=== PATIENT | male | born 1960 | race Caucasian/White ===

== ENCOUNTER 2017-06-24 06:00 | Inpatient (IN) | payer BC, OTHER, SELFPAY ==
[2017-06-24 06:26] LABS: #Basophils 0.1 thou/uL (0.0-0.2); #Eosinphils 0.1 thou/uL (0.0-0.7); #Lymphocytes 3.4 thou/uL (1.20-3.40); #Monocytes 0.7 thou/uL (0.11-0.59); #Neutrophils 4.8 thou/uL (1.40-6.50); %Basophils 0.6 % (0.0-1.0); %Eosinophils 1.6 % (0.0-10.0); %Lymphocytes 37.1 % (21.0-51.0); %Monocytes 7.9 % (0.0-10.0); Hematocrit 45.5 % (42.0-52.0); Mean Platelet Volume 8.4 fL (7.4-10.4); White Blood Cell (WBC) Count 9.1 thou/uL (4.8-10.8)
[2017-06-24 06:32] LABS: Prothrombin Time 13.1 SEC (12.0-14.7)
[2017-06-24] MEDS ORDERED: Fentanyl 100 MCG/2 ML VIAL ONE ×3 (06:46→17:29)
[2017-06-24 07:04] LABS: ALT (SGPT) 59 U/L (8-55); AST (SGOT) 56 U/L (5-34); Alkaline Phosphatase 61 U/L (40-150); Anion Gap 15 mmol/L (10-20); BUN (Urea Nitrogen) 16 mg/dL (8.4-25.7); Bilirubin, Total 1.6 mg/dL (0.2-1.2); Calc. Creatinine Clearance 0 mL/min (70-130); Calcium 8.7 mg/dL (7.8-10.44); Carbon Dioxide 21 mmol/L (22-29); Chloride 104 mmol/L (98-107); Estimated GFR-MDRD 76; Globulin 3.2 g/dL (2.4-3.5)
[2017-06-24] MEDS ORDERED: Ondansetron HCl/PF 4 MG/2 ML Vial ONE ×2 (07:36→15:11)
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
[2017-06-24] MEDS ORDERED: cefTRIAXone\\ROCEPHIN 1 GM in Sodium Chloride 0.9% 100 ML IVPB SCH ×2 (08:30→10:15)
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
[2017-06-24 09:18] LABS: Lactic Acid - Sepsis 1.9 mmol/L (0.5-2.2)
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
[2017-06-24] MEDS ORDERED: Dextrose 5% in Water 1,000 ML IV PRN (10:02)
[2017-06-24] MEDS ORDERED: Ondansetron HCl/PF 4 MG/2 ML Vial IVP PRN ×2 (10:02→17:06)
[2017-06-24] MEDS ORDERED: Promethazine HCl 25 MG/ML VIAL IM PRN ×2 (10:02→17:06)
[2017-06-24] MEDS ORDERED: Dextrose 50% Abboject 50 ML SYRINGE SLOW IVP PRN (10:02)
[2017-06-24] MEDS ORDERED: Ondansetron ODT 4 MG TAB PO PRN (10:02)
[2017-06-24] MEDS ORDERED: Rib Fracture Protocol PO SCH (10:02)
[2017-06-24] MEDS ORDERED: Morphine Sulfate 2 MG/ML SYRINGE IVP PRN (10:02)
[2017-06-24] MEDS ORDERED: Famotidine/PF 20 mg/2ml Vial SLOW IVP SCH ×2 (10:02→10:15)
[2017-06-24] MEDS ORDERED: Cyclobenzaprine 10 MG TAB PO PRN (11:00)
[2017-06-24] MEDS ORDERED: Morphine Sulfate 2 MG/ML SYRINGE ONE (11:55)
[2017-06-24] MEDS ORDERED: Sodium Chloride 0.9% 100 ML ONE (12:21)
[2017-06-24] MEDS ORDERED: cefTRIAXone\\ROCEPHIN 1 GM VIAL ONE (12:21)
[2017-06-24] MEDS ORDERED: Neomycin-Polymyxin 1 ML AMP ONE ×3 (14:31→15:34)
[2017-06-24] MEDS ORDERED: Propofol 200 MG/20 ML VIAL ONE (15:11)
[2017-06-24] MEDS ORDERED: Ketorolac Tromethamine 30 MG/ML VIAL ONE (15:11)
[2017-06-24] MEDS ORDERED: Glycopyrrolate 0.2 MG/ML 5 ML SYRINGE ONE (15:11)
[2017-06-24] MEDS ORDERED: ISOVUE-370 76%-LOCM 1 ML ONE (16:21)
[2017-06-24] MEDS: Sodium Chloride 0.9% 1,000 ML IV SCH ×2 (16:37→18:41)
[2017-06-24] MEDS: traMADol HCl 50 MG TAB PO SCH ×2 (16:52→18:46)
[2017-06-24] MEDS: Acetaminophen 500 MG TAB PO SCH ×2 (16:52→18:45)
[2017-06-24] MEDS: Gabapentin 300 MG CAP PO SCH ×2 (16:52→21:18)
[2017-06-24] MEDS: Ibuprofen 800 MG TAB PO SCH ×2 (16:52→18:45)
[2017-06-24] MEDS ORDERED: Promethazine HCl 25 MG/ML VIAL SLOW IVP PRN (17:06)
[2017-06-24] MEDS ORDERED: Meperidine HCl/PF 25 MG/ML VIAL ONE (17:09)
[2017-06-24 19:49] VITALS: BMI 32.5
[2017-06-24] MEDS: Famotidine/PF 20 mg/2ml Vial SLOW IVP SCH (21:18)
[2017-06-25] MEDS: Ibuprofen 800 MG TAB PO SCH ×5 (00:08→23:23)
[2017-06-25] MEDS: Acetaminophen 500 MG TAB PO SCH ×5 (00:08→23:23)
[2017-06-25] MEDS: traMADol HCl 50 MG TAB PO SCH ×5 (00:08→23:23)
[2017-06-25] MEDS: Sodium Chloride 0.9% 1,000 ML IV SCH ×3 (02:09→20:05)
[2017-06-25 06:23] LABS: #Lymphocytes 1.1 thou/uL (1.20-3.40); #Monocytes 0.9 thou/uL (0.11-0.59); #Neutrophils 4.8 thou/uL (1.40-6.50); %Basophils 0.2 % (0.0-1.0); %Eosinophils 0.7 % (0.0-10.0); %Lymphocytes 15.5 % (21.0-51.0); %Monocytes 13.2 % (0.0-10.0); Hematocrit 37.2 % (42.0-52.0); Red Blood Cell (RBC) Count 3.89 mill/uL (4.70-6.10); White Blood Cell (WBC) Count 6.9 thou/uL (4.8-10.8)
[2017-06-25 06:45] LABS: Anion Gap 11 mmol/L (10-20); BUN (Urea Nitrogen) 18 mg/dL (8.4-25.7); Calc. Creatinine Clearance 112 mL/min (70-130); Calcium 8.1 mg/dL (7.8-10.44); Carbon Dioxide 23 mmol/L (22-29); Chloride 105 mmol/L (98-107); Estimated GFR-MDRD 76
[2017-06-25] MEDS: Gabapentin 300 MG CAP PO SCH ×3 (08:09→20:02)
[2017-06-25] MEDS: Famotidine/PF 20 mg/2ml Vial SLOW IVP SCH ×3 (08:09→20:02)
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
--- NOTE | 2017-06-25 08:53 | RAD ---
INTRAOPERATIVE FLUOROSCOPY: HISTORY: Fracture. COMPARISON: None. FINDINGS: Two fluoroscopic views were provided for Dr. Hernandez. There is a comminuted distal radius fracture. There are associated post traumatic changes in the so ft tissues. External fixation hardware projects over the right hand. IMPRESSION: Fluoroscopy as above. POS: [facility]
[2017-06-25] MEDS ORDERED: cefTRIAXone\\ROCEPHIN 1 GM in Sodium Chloride 0.9% 100 ML IVPB SCH (09:00)
[2017-06-25] MEDS: cefTRIAXone\\ROCEPHIN 2 GM in Sodium Chloride 0.9% 100 ML IVPB SCH (13:05)
[2017-06-26] MEDS: Sodium Chloride 0.9% 1,000 ML IV SCH ×3 (05:29→18:36)
[2017-06-26] MEDS: Acetaminophen 500 MG TAB PO SCH ×3 (05:41→17:23)
[2017-06-26] MEDS: Ibuprofen 800 MG TAB PO SCH ×3 (05:42→17:23)
[2017-06-26] MEDS: traMADol HCl 50 MG TAB PO SCH ×3 (05:42→17:23)
[2017-06-26] MEDS ORDERED: Bupivacaine HCl 0.5%/Epinephrine 1:200,000/PF 30 ml Vial ONE (07:37)
[2017-06-26] MEDS ORDERED: Lidocaine 1% (PF) 30 ML VIAL ONE (07:37)
[2017-06-26] MEDS ORDERED: Thrombin 5000 UNITS/5 ML VIAL ONE (07:38)
[2017-06-26] MEDS ORDERED: Bacitracin Zinc Ointment 30 gm TUBE ONE (07:38)
[2017-06-26] MEDS ORDERED: Propofol 200 MG/20 ML VIAL ONE (08:40)
[2017-06-26] MEDS ORDERED: Succinylcholine Chloride 20 MG/ML 10 ml SYRINGE FS ONE (08:40)
[2017-06-26] MEDS ORDERED: Lidocaine 2% PF 10 ML AMP (For Epidural Use) ONE (08:40)
[2017-06-26] MEDS ORDERED: Fentanyl 100 MCG/2 ML VIAL ONE ×2 (08:57→10:52)
[2017-06-26] MEDS ORDERED: Promethazine HCl 25 MG/ML VIAL SLOW IVP PRN (10:09)
[2017-06-26] MEDS ORDERED: Ondansetron HCl/PF 4 MG/2 ML Vial IVP PRN (10:09)
[2017-06-26] MEDS ORDERED: Promethazine HCl 25 MG/ML VIAL IM PRN (10:09)
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
[2017-06-26] MEDS: Gabapentin 300 MG CAP PO SCH ×3 (10:57→20:16)
[2017-06-26] MEDS: Famotidine/PF 20 mg/2ml Vial SLOW IVP SCH ×2 (10:57→20:16)
[2017-06-26] MEDS: cefTRIAXone\\ROCEPHIN 2 GM in Sodium Chloride 0.9% 100 ML IVPB SCH (12:40)
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
[2017-06-27] MEDS: Acetaminophen 500 MG TAB PO SCH ×5 (01:21→23:29)
[2017-06-27] MEDS: traMADol HCl 50 MG TAB PO SCH ×5 (01:21→23:28)
[2017-06-27] MEDS: Ibuprofen 800 MG TAB PO SCH ×5 (01:21→23:29)
[2017-06-27] MEDS: Sodium Chloride 0.9% 1,000 ML IV SCH (04:15)
[2017-06-27] MEDS: Famotidine/PF 20 mg/2ml Vial SLOW IVP SCH ×2 (09:11→21:14)
[2017-06-27] MEDS: Gabapentin 300 MG CAP PO SCH ×3 (09:11→21:13)
[2017-06-27] MEDS: cefTRIAXone\\ROCEPHIN 2 GM in Sodium Chloride 0.9% 100 ML IVPB SCH (13:06)
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
[2017-06-27] MEDS ORDERED: Sodium Chloride 0.9% 250 ML 250 ML IVPB SCH (17:30)
[2017-06-27] MEDS: Enoxaparin Sodium 40 MG/0.4 ML SYRINGE SC SCH (21:12)
[2017-06-27] MEDS: Tamsulosin HCl 0.4 MG CAP PO SCH (21:13)
[2017-06-28] MEDS: Acetaminophen 500 MG TAB PO SCH ×3 (06:08→18:22)
[2017-06-28] MEDS: traMADol HCl 50 MG TAB PO SCH ×3 (06:09→18:22)
[2017-06-28] MEDS: Ibuprofen 800 MG TAB PO SCH ×3 (06:09→18:22)
[2017-06-28] MEDS: Polyethylene Glycol 3350 17 GM Packet PO SCH (09:06)
[2017-06-28] MEDS: Gabapentin 300 MG CAP PO SCH ×3 (09:06→21:30)
[2017-06-28] MEDS: Senokot S 8.6-50 MG TAB PO SCH ×2 (09:06→21:30)
[2017-06-28] MEDS: Famotidine/PF 20 mg/2ml Vial SLOW IVP SCH ×2 (09:06→21:29)
[2017-06-28] MEDS: Enoxaparin Sodium 40 MG/0.4 ML SYRINGE SC SCH (21:30)
[2017-06-28] MEDS: Tamsulosin HCl 0.4 MG CAP PO SCH (21:30)
[2017-06-29] MEDS: Ibuprofen 800 MG TAB PO SCH ×4 (00:53→17:17)
[2017-06-29] MEDS: Acetaminophen 500 MG TAB PO SCH ×4 (00:53→17:18)
[2017-06-29] MEDS: traMADol HCl 50 MG TAB PO SCH ×4 (00:53→17:48)
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
[2017-06-29] MEDS: Polyethylene Glycol 3350 17 GM Packet PO SCH ×2 (08:03→08:04)
[2017-06-29] MEDS: Senokot S 8.6-50 MG TAB PO SCH ×2 (08:04→21:53)
[2017-06-29] MEDS: Gabapentin 300 MG CAP PO SCH ×3 (08:04→21:52)
[2017-06-29] MEDS: Famotidine/PF 20 mg/2ml Vial SLOW IVP SCH (08:05)
[2017-06-29] MEDS: Famotidine 20 MG TAB PO SCH (21:52)
[2017-06-29] MEDS: Enoxaparin Sodium 40 MG/0.4 ML SYRINGE SC SCH (21:53)
[2017-06-29] MEDS: Tamsulosin HCl 0.4 MG CAP PO SCH (21:53)
[2017-06-30] MEDS: Acetaminophen 500 MG TAB PO SCH ×5 (00:50→23:48)
[2017-06-30] MEDS: traMADol HCl 50 MG TAB PO SCH ×5 (00:50→23:48)
[2017-06-30] MEDS: Ibuprofen 800 MG TAB PO SCH ×5 (00:50→23:48)
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
[2017-06-30] MEDS ORDERED: Lisinopril 20 MG TAB PO SCH (09:00)
[2017-06-30] MEDS: Polyethylene Glycol 3350 17 GM Packet PO SCH (09:03)
[2017-06-30] MEDS: Senokot S 8.6-50 MG TAB PO SCH ×2 (09:03→20:35)
[2017-06-30] MEDS: Gabapentin 300 MG CAP PO SCH ×3 (09:03→20:35)
[2017-06-30] MEDS: Famotidine 20 MG TAB PO SCH ×2 (09:03→20:35)
[2017-06-30 09:10] LABS: Anion Gap 15 mmol/L (10-20); BUN (Urea Nitrogen) 16 mg/dL (8.4-25.7); Calc. Creatinine Clearance 148 mL/min (70-130); Carbon Dioxide 24 mmol/L (22-29); Chloride 103 mmol/L (98-107); Estimated GFR-MDRD Greater than 90; Magnesium 2.2 mg/dL (1.6-2.6); Phosphorus 3.5 mg/dL (2.3-4.7)
[2017-06-30] MEDS: Tamsulosin HCl 0.4 MG CAP PO SCH (20:35)
[2017-06-30] MEDS: Enoxaparin Sodium 40 MG/0.4 ML SYRINGE SC SCH (20:35)
[2017-07-01] MEDS: traMADol HCl 50 MG TAB PO SCH ×5 (06:11→23:48)
[2017-07-01] MEDS: Acetaminophen 500 MG TAB PO SCH ×5 (06:11→23:48)
[2017-07-01] MEDS: Ibuprofen 800 MG TAB PO SCH ×5 (06:11→23:48)
[2017-07-01] MEDS ORDERED: Valsartan 80 MG TAB PO SCH (09:00)
[2017-07-01] MEDS: Polyethylene Glycol 3350 17 GM Packet PO SCH (09:41)
[2017-07-01] MEDS: Senokot S 8.6-50 MG TAB PO SCH ×2 (09:42→20:24)
[2017-07-01] MEDS: Famotidine 20 MG TAB PO SCH ×2 (09:42→20:25)
[2017-07-01] MEDS: Gabapentin 300 MG CAP PO SCH ×3 (09:43→20:25)
[2017-07-01] MEDS: Valsartan 80 MG TAB PO SCH (09:44)
[2017-07-01] MEDS ORDERED: Morphine Sulfate 2 MG/ML SYRINGE SLOW IVP PRN (20:04)
[2017-07-01] MEDS: Tamsulosin HCl 0.4 MG CAP PO SCH (20:25)
--- NOTE | 2017-07-01 21:35 | RAD ---
TWO VIEWS OF THE LEFT WRIST: 07/01/17 COMPARISON: None. HISTORY: Comparison for complex right sided procedure on the wrist. Preoperative radiograph. FINDINGS: Two views of the left wrist shows no evidence of acute fracture or dislocation. No degenerative gupta ges are seen. IMPRESSION: Unremarkable exam. POS: [facility]
--- NOTE | 2017-07-01 22:22 | RAD ---
TWO VIEWS OF THE RIGHT WRIST: 07/01/17 COMPARISON: Left wrist 07/01/17 and right wrist 06/24/17. FINDINGS: Two views of the right wrist shows an external fixation device in place extending from the radius to the second metacarpal. There is a severely comminuted fracture of the distal radius. There is also a fracture of the scaphoid waist. No ulnar fracture is appreciated. An overlying splint obscures fin e bony and soft tissue detail. IMPRESSION: 1. Comminuted distal radius fracture. 2. Scaphoid fracture. POS: [facility]
[2017-07-01] MEDS: Sodium Chloride 0.9% 1,000 ML IV SCH (23:48)
--- NOTE | 2017-07-02 01:42 | CON ---
DATE OF CONSULTATION: 07/01/2017 CHIEF COMPLAINT: The patient reports that his right upper extremity pain is still without numbness and tingling. He had a VAC dressing change day before this evaluation and photograph of that show b eefy red tissue, but no gross infection. On physical examination, the patient has approximately -20 degrees extension PIP joints to 80 degree s flexion diffusely. Thumb can reach to touch the ring finger. He has no absence of extension or f lexion at the thumb interphalangeal joint. He has no absence of flexion at the interphalangeal join ts of the other digits and no stretch pain for extension or flexion of the digits. External fixator pin sites without infection. ASSESSMENT/RECOMMENDATION: Markedly comminuted distal radius fracture extending down to the distal third shaft with the joint in at least five pieces, radial styloid perhaps the biggest component is still intact with a three-point to four-point scaphoid fracture as well as known distal radioulnar j oint subluxation with TFCC and distal radioulnar joint ligaments rupture and a type 3 ulnar styloid fracture; all of these present a challenge, but in the face of open wound even more challenge. Ther efore, tomorrow we first, once the patient has had his procedure of right lower extremity, began wit h debridement, irrigation and then first attempt to restore the articular surface at the radius, put a plate onto maintain height, restore the shaft, and then once we were able to achieve radial artic ular surface reconstruction and maintain height, then we will restore the TFCC by ulnar styloid fixa tion, repair of TFCC and wrist radioulnar joint ligaments primarily. Finally, we will address the s caphoid. It is in multiple fragments, so may have to use K-wires, but we would like to use a Synthe s screw. The patient understands the risks, the possibility may need to have a bone graft and later closure, may need to have a skin graft if he does have ability to not close the wound, which is a p ossibility because of the edema and the amount of soft tissue loss already. He understands and agre es to proceed.
[2017-07-02] MEDS: Ibuprofen 800 MG TAB PO SCH ×4 (06:29→23:38)
[2017-07-02] MEDS: traMADol HCl 50 MG TAB PO SCH (06:29)
[2017-07-02] MEDS: Acetaminophen 500 MG TAB PO SCH ×4 (06:29→23:38)
[2017-07-02 06:51] LABS: Anion Gap 19 mmol/L (10-20); BUN (Urea Nitrogen) 21 mg/dL (8.4-25.7); Calc. Creatinine Clearance 152 mL/min (70-130); Calcium 8.9 mg/dL (7.8-10.44); Carbon Dioxide 15 mmol/L (22-29); Chloride 108 mmol/L (98-107); Estimated GFR-MDRD Greater than 90; Magnesium 2.2 mg/dL (1.6-2.6); Phosphorus 3.8 mg/dL (2.3-4.7)
[2017-07-02] MEDS ORDERED: Midazolam HCl 2 mg/2 ml Vial ONE (07:17)
[2017-07-02] MEDS ORDERED: Ropivacaine 0.2% HCl/PF 20 ML ONE (07:17)
[2017-07-02] MEDS ORDERED: Fentanyl 100 MCG/2 ML VIAL ONE ×5 (07:17→19:48)
[2017-07-02] MEDS ORDERED: Ropivacaine HCl/PF 250 ML in Premix Bag 1 BAG NERVE BLCK SCH ×2 (07:35→07:45)
[2017-07-02] MEDS ORDERED: traMADol HCl 50 MG TAB PO PRN ×2 (07:35)
[2017-07-02] MEDS ORDERED: Zolpidem Tartrate 5 MG TAB PO PRN ×2 (07:35→18:17)
[2017-07-02] MEDS ORDERED: HYDROcodone/Acetaminophen 10/325 mg Tablet PO PRN ×2 (07:35)
[2017-07-02] MEDS ORDERED: Ondansetron HCl/PF 4 MG/2 ML Vial IVP PRN ×3 (07:35→18:17)
[2017-07-02] MEDS ORDERED: Promethazine HCl 25 MG/ML VIAL IM PRN ×3 (07:35→18:17)
[2017-07-02] MEDS ORDERED: Fentanyl 100 MCG/2 ML VIAL IV PRN (07:38)
[2017-07-02] MEDS ORDERED: Bacitracin Zinc Ointment 30 gm TUBE ONE (07:46)
[2017-07-02] MEDS ORDERED: Bupivacaine HCl 0.5%/Epinephrine 1:200,000/PF 30 ml Vial ONE (07:46)
[2017-07-02] MEDS ORDERED: Ondansetron HCl/PF 4 MG/2 ML Vial ONE (08:18)
[2017-07-02] MEDS ORDERED: Succinylcholine Chloride 20 MG/ML 10 ml SYRINGE FS ONE (08:18)
[2017-07-02] MEDS ORDERED: Lidocaine 1% PF 5 ML VIAL ONE (08:18)
[2017-07-02] MEDS ORDERED: Esmolol 100 MG/10 ML VIAL ONE (08:18)
[2017-07-02] MEDS ORDERED: PHENYLEPHRINE-NS 100 MCG/ML 10 ML SYRINGE ONE (08:18)
[2017-07-02] MEDS ORDERED: Vecuronium 10 MG VIAL ONE (08:18)
[2017-07-02] MEDS ORDERED: Metoprolol Tartrate 5 MG/5 ML VIAL ONE ×2 (08:18→18:09)
[2017-07-02] MEDS ORDERED: Propofol 200 MG/20 ML VIAL ONE (08:18)
[2017-07-02] MEDS ORDERED: Glycopyrrolate 0.2 MG/ML 5 ML SYRINGE ONE (08:18)
[2017-07-02] MEDS ORDERED: Dexamethasone 20 MG/5 ML VIAL ONE (08:18)
[2017-07-02] MEDS ORDERED: Ketorolac Tromethamine 30 MG/ML VIAL ONE (08:18)
[2017-07-02] MEDS ORDERED: Thrombin 5000 UNITS/5 ML VIAL ONE ×2 (12:01→16:41)
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
[2017-07-02] MEDS: Famotidine 20 MG TAB PO SCH ×2 (16:46→21:52)
[2017-07-02] MEDS: Polyethylene Glycol 3350 17 GM Packet PO SCH (16:47)
[2017-07-02] MEDS: Gabapentin 300 MG CAP PO SCH ×2 (16:47→21:52)
[2017-07-02] MEDS: Senokot S 8.6-50 MG TAB PO SCH ×2 (16:48→21:52)
[2017-07-02] MEDS: Valsartan 80 MG TAB PO SCH (16:48)
[2017-07-02] MEDS: Sodium Chloride 0.9% 1,000 ML IV SCH (16:49)
[2017-07-02] MEDS ORDERED: SUGAMMADEX SODIUM 500 MG/5 ML VIAL ONE (17:47)
[2017-07-02] MEDS ORDERED: Promethazine HCl 25 MG/ML VIAL SLOW IVP PRN (18:15)
[2017-07-02] MEDS ORDERED: Naloxone HCl 0.4 mg/ml Vial IV PRN (18:17)
[2017-07-02] MEDS ORDERED: diphenhydrAMINE HCl 25 MG CAP PO PRN (18:17)
[2017-07-02] MEDS ORDERED: diphenhydrAMINE HCl 50 MG/ML 1 ML VIAL IVP PRN (18:17)
[2017-07-02] MEDS ORDERED: Fentanyl 5000 MCG/250 ML CADD IVPB PRN (18:17)
[2017-07-02] MEDS ORDERED: diphenhydrAMINE HCl 50 MG/ML 1 ML VIAL IM PRN (18:17)
[2017-07-02] MEDS ORDERED: Communication Order-Pharmacy FS SCH (18:30)
[2017-07-02] MEDS ORDERED: Fentanyl 20 MCG/ML 250 ML ONE (18:33)
[2017-07-02 18:48] LABS: Oxyhemoglobin 94.6 % (94.0-97.0); Sodium 137 mmol/L (135-148)
[2017-07-02 18:49] LABS: Mode SIMPLE MASK; Vent NO
[2017-07-02 20:31] LABS: #Lymphocytes 1.3 thou/uL (1.20-3.40); #Monocytes 1.2 thou/uL (0.11-0.59); #Neutrophils 8.2 thou/uL (1.40-6.50); %Basophils 0.1 % (0.0-1.0); %Eosinophils 0.2 % (0.0-10.0); %Monocytes 11.5 % (0.0-10.0); Hematocrit 32.1 % (42.0-52.0); Mean Platelet Volume 6.5 fL (7.4-10.4); Red Blood Cell (RBC) Count 3.31 mill/uL (4.70-6.10); White Blood Cell (WBC) Count 10.8 thou/uL (4.8-10.8)
[2017-07-02] MEDS: Tamsulosin HCl 0.4 MG CAP PO SCH (21:52)
[2017-07-02] MEDS: Ketorolac Tromethamine 30 MG/ML VIAL IVP SCH ×3 (22:03→23:37)
[2017-07-03] MEDS: Sodium Chloride 0.9% 1,000 ML IV SCH ×2 (02:34→17:42)
[2017-07-03] MEDS: Ibuprofen 800 MG TAB PO SCH ×3 (06:22→17:47)
[2017-07-03] MEDS: Ketorolac Tromethamine 30 MG/ML VIAL IVP SCH ×3 (06:22→17:47)
[2017-07-03] MEDS: Acetaminophen 500 MG TAB PO SCH ×3 (06:22→17:47)
--- NOTE | 2017-07-03 07:55 | OP ---
PREOPERATIVE DIAGNOSES: 1. Right distal radius fracture, multiple parts. 2. Right radial shaft fracture, multiple parts of comminution. 3. Ulnar styloid fracture, right. 4. Right scaphoid fracture. 5. Right triangular fibrocartilage tear. 6. Right distal radioulnar joint disruption. 7. Right 20 x 6 cm full-thickness skin loss with exposed bone and tendon. POSTOPERATIVE DIAGNOSES: 1. Right distal radius fracture in multiple parts. 2. Right radial shaft fracture, multiple positive comminution. 3. Ulnar styloid fracture, right. 4. Right scaphoid fracture. 5. Right triangular fibrocartilage tear. 6. Right distal radioulnar joint disruption. 7. Right 20 x 6 cm full-thickness skin loss with exposed bone and tendon. 8. The articular surface was in 6 parts with marked intraarticular comminution. There was an avuls ion fracture of the lunate directly opposite the lunate fossa, central area, and the scaphoid had so me mild comminution, but not enough to require bone grafting. Also, the patient had a type 3 ulnar styloid fracture where the triangular fibrocartilage portion which was still attached and the joint was disrupted or subluxed. PROCEDURES PERFORMED: At the right upper extremity: 1. Debridement of wound, forearm, 20 x 6 cm. 2. Closure of wound 6 x 2 cm and remainder was skin graft from left thigh to left forearm 20 x 6 cm . 3. Open reduction internal fixation of the scaphoid fracture. 4. Open reduction internal fixation of radial shaft fracture. 5. open reduction internal fixation of lunate avulsion fracture via excision of fragment. 6. Distal radius, 6 part, intra-articular fracture, open reduction internal fixation. 7. Major bone graft radius. 8. Triangular fibrocartilage reconstruction. 9. Open reduction internal fixation of ulnar styloid. 10. Distal radioulnar joint ligament repair, palmar and dorsal. 11. Use of C-arm for approximately 4 hours, supervision by the surgeon intraop. DESCRIPTION OF PROCEDURE: After successful general endotracheal anesthesia and the patient complete d a 2-1/2 hour lower extremity portion of procedure, he was completely de-draped, re-prepped, re-pos itioned, and we prepped simultaneously the left thigh as well as the right forearm for what we knew would be the need for coverage of the skin graft no matter how much the wound we could get closed; t his previous open wound had been debrided at least 3 times. The patient then had the wound irrigated and debrided after limb exsanguination to assure there was no gross infection and there was none. This included the wound edge where a small amount of necrosi s increasing the size of the wound to make it a total of 22 x 8 cm by the time debridement was compl eted. The patient then had the ulnar styloid, the exact incision outlined slightly radial to the flexor ca rpi radialis, carried through the skin and subcutaneous tissue to expose the entire radial shaft fra cture as well as the joint. We then saw the 6 pieces where the medial column was definitely b roken into 2 fragments and there was an additional fragment dorsally and palmarly in the center wher e amongst those fragments we actually found avulsed piece of lunate and the scaphoid fracture. Scap hoid fragment was rotated to side. Next, the radial styloid was in 2 pieces as well creating a 6 fr agment distal radius fracture. First, we reconstructed the lower medial complex to each other. Then, we K-wired the radial styloid to each other. We best fit the fragments as the fragments in the center were primarily volar, one triangular shape almost a 9 mm arcs and this was keyed in with a K-wire that caught the radial stylo id to the bone complex and dorsally, we bone grafted this area to support a chondral area of less th an 4 mm x 2 mm. All were now keyed in and held with a total of 4 wires. At that time, we finished the articular surface reconstruction as part of distal radius open reduction internal fixation. We could now see that there were multiple fragments in the shaft with the ulnar side having a defect ar ea, we finished reconstructing all the six shaft component parts of approximately 2 cm in length and 1 cm in width, but we were able to completely reconstruct the long cortical fragments of the radial side and we were able to align the plate to restore length to make the ulna 1.5 mm shorter than the radius at the time of final bone graft with cortical/cancellous chips. Now, we have finished the d istal radius fracture and we had approximated the shaft. In order to secure the shaft fragments, we secured the distal radius plate with at least 4 holes proximal to the primary fracture line and on the radial side, we reconstructed using the plate and an additional 2.7 plate from the mini fragment set, which was placed with one screw proximal to the fracture and one screw through the radial styl oid portion and into the cortical bone at the bottom of the ulnar styloid fragment with almost a lag affect. This closed the gap, gave stability to the radial column, and then now allowed us to only have to worry about one-third or less comminution. Thus, we did not harvest iliac bone graft, espec ially in the setting of a previous grade 2 open fracture less than a week, 7 days old. The patient had the fixation across the subarticular region with three screws and five K-wires with all excellent purchase in a locking mode, we had restored the height, there was approximately 5 degr ees of palmar tilt, but the distal ulna, of course, was still subluxing. At this point, we saw ther e was comminution. We used over 40 mL of cancellous chips, some larger in the juxta-articular regio n and the smaller ones to fill in the cortex so that the radial column not only had a plate support into the radial side but had bone graft support under the plate on the ulnar side. We then extended the incision across the joint, saw the lunate piece that was avulsed and saw that t here was still some attachment of the scaphoid piece to the scapholunate ligament to the lunate, so once we rotated the proximal scaphoid piece appropriately, visualized the scaphotrapezial joint, we used a rongeur to make a 5 mm wire trough in the palmar trapezium, pointing right to the scaphoid ri dge, we make entry for the screw and we placed two wires, one in a construct protected mode for dero tation and one as the guidewire. The screw measured approximately 32 mm, so we chose a [address] d it enough palmarly so we knew where we will get purchase after performing what appeared to be radi ographic clinically anatomic reduction. The reduction was maintained as the screw was placed, the s crew was then placed in compression mode with a 2.4 screw and the wires removed. This fixed the hea d to be loosened and manipulated to achieve both reductions of the distal radial shaft and the scaph oid. Once this was done, we then visualized the joint, inspect the joint visually and probed it wit h a [place], confined, no other loose bone fragments, debrided some of the capsule that had been torn and loose and within the joint, and then proceeded to cut the wires on the radius. Again, the 2 scr ews from the radial plate into the ulnar side of the distal radius, both proximal and distal to the fracture line had already been accomplished. At this point, the patient had attention now turned to his ulnar wound. A moist towel lap sponge wa s placed in the wound on the radial side. Here, we did not have to extend his incision, inspected t he wound, found that indeed he did have what we suspected a type 3 ulnar styloid fracture with 100% displacement, widening of the distal radioulnar joint and dorsal subluxation, almost dislocation. W savita reduced the joint, held it with a Synthes 399.9, a large tenaculum clamp and then proceeded to do reconstruction. From this position based on the massive size of the wound, we could see both palmar and dorsal and saw that the palmar and dorsal distal radioulnar joint ligament was torn off the uln a. This included deep fibers of the ulna . The triangular fibrocartilage had its palmar half still attached to the ulnar styloid and its dorsal half disrupted in almost a linear 50% tear from t he ulnar styloid to the center of TFCC. Debrided the tear, then caught the tear in a #1 Ethibond, p laced #1 Ethibond around the ligaments for tension banding of the TFCC and the portion of the triang ular fibrocartilage on it, and then placed them both with tension band, using 1.1 K-wires for derota tion and final reduction of the ulnar styloid. We then repaired the triangular fibrocartilage back to its connection to the side of the ulna and the distal radioulnar joint ligament, especially volar ly and proximally and dorsally using Ethibond suture. We then placed a drill hole x2 through the ulna from palmar to dorsal to make a [id number] tens ion band with the heavy Ethibond suture. These both tied well without complication. Now, the tourniquet was deflated, this was the second time the tourniquet deflated. It was deflated when we first finished the initial part of distal radius before we did the scaphoid and reinflated for the scaphoid and the ulna. It was a 2-hour tourniquet initial inflation, 70 minutes tourniquet down and another 2 hours of inflation. Hemostasis was excellent. We debrided some wound edge necro sis in the dorsal distal one-third of the wound, in the palmar central one-third. There was also a separate laceration that was longitudinal that was 2 cm x 5 mm. This was repaired and closed. Then , we saw hemostasis on the radial side and closed the floor of the flexor carpi radialis distal to t he wrist, the wrist joint capsule, and the floor proximal to the wrist and then subcutaneous closed with a running 3-0 Monocryl undyed. The palmar radius incision was then closed with a 4-0 nylon int errupted simple pattern. At this point, using a power dermatome on the [place] type, at the previously already prepped and juni ped and prepared skin site on the posterolateral mid left thigh, we used the [place]ma dermatome set at 0.20 thickness and a 2-inch wide blade to harvest enough skin graft when it was measured 1 to 1.5 t o completely cover the defect. Once, we noted that no bone or exposed tendon was seen in the wound once we had performed the closure, and therefore, the skin graft was on excellent recipient bed. Th e donor site was covered with thrombin-soaked Gelfoam, an ABD, and sterile Tegaderm. Then, we place d on top of the skin graft site, a bolster with mineral oil bacitracin under Adaptic and mineral-oil soaked ABD as a bolster that was stapled around the wound. Bulky dressing was applied along with a bulky hand dressing in each webspace, then a sugar tong splint, the patient had excellent circulati on, left the operating room without evidence of anesthetic or operative complication.
[2017-07-03] MEDS: Famotidine 20 MG TAB PO SCH ×2 (09:03→21:40)
[2017-07-03] MEDS: Polyethylene Glycol 3350 17 GM Packet PO SCH (09:04)
[2017-07-03] MEDS: Gabapentin 300 MG CAP PO SCH ×3 (09:04→21:39)
[2017-07-03] MEDS: Valsartan 80 MG TAB PO SCH (09:05)
[2017-07-03] MEDS: Senokot S 8.6-50 MG TAB PO SCH ×2 (09:05→21:39)
--- NOTE | 2017-07-03 15:13 | RAD ---
THREE VIEWS RIGHT ANKLE HISTORY: Intraoperative radiographs. FINDINGS: AP, lateral, and oblique views of the right ankle obtained. Images demonstrate open reduction inter nal fixation of the comminuted distal right tibial fracture. Fracture fragments are in good alignme nt post reduction. IMPRESSION: Open reduction internal fixation of distal right tibial fracture. POS: [facility]
--- NOTE | 2017-07-03 15:38 | PRG ---
DATE OF SERVICE: 07/03/2017 This is a postoperative day #1 orthopedic hand visit evaluation at bedside on Dontrell Marcos. HISTORY: The patient reports hand pain increased greatest since his operation last night. He repor ts he had a \\\\"rough night\\\\" He did not have numbness and tingling. PHYSICAL EXAMINATION: There is minimal amount of swelling of the digits. No stretch pain, flexion and extension of the interphalangeal joints of all digits intact. No stretch pain, one-second refil l, digits are pink. Dressing intact with no bleeding. ASSESSMENT AND RECOMMENDATION: Normal postoperative day #1 exam. Recommend the patient to continue perioperative antibiotics for 24 hours, I suspect that with the on as well as the splint, he could put some weight on his upper extremity beginning approximately postoperative day #10.
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
[2017-07-03] MEDS: Tamsulosin HCl 0.4 MG CAP PO SCH (21:39)
[2017-07-04] MEDS: Ibuprofen 800 MG TAB PO SCH ×4 (00:53→17:11)
[2017-07-04] MEDS: Acetaminophen 500 MG TAB PO SCH ×4 (00:53→17:12)
[2017-07-04] MEDS: Ketorolac Tromethamine 30 MG/ML VIAL IVP SCH ×2 (00:53→07:06)
[2017-07-04] MEDS: Senokot S 8.6-50 MG TAB PO SCH ×2 (08:18→20:45)
[2017-07-04] MEDS: Polyethylene Glycol 3350 17 GM Packet PO SCH (08:18)
[2017-07-04] MEDS: Gabapentin 300 MG CAP PO SCH ×3 (08:19→20:45)
[2017-07-04] MEDS: Famotidine 20 MG TAB PO SCH ×2 (08:19→20:45)
[2017-07-04] MEDS: Valsartan 80 MG TAB PO SCH (08:20)
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
[2017-07-04] MEDS: Tamsulosin HCl 0.4 MG CAP PO SCH (20:45)
[2017-07-05] MEDS: Ibuprofen 800 MG TAB PO SCH ×5 (00:39→23:59)
[2017-07-05] MEDS: Acetaminophen 500 MG TAB PO SCH ×5 (00:39→23:59)
[2017-07-05 05:54] LABS: #Eosinphils 0.4 thou/uL (0.0-0.7); #Lymphocytes 1.4 thou/uL (1.20-3.40); #Monocytes 0.8 thou/uL (0.11-0.59); #Neutrophils 4.1 thou/uL (1.40-6.50); %Basophils 0.5 % (0.0-1.0); %Eosinophils 5.6 % (0.0-10.0); %Lymphocytes 20.6 % (21.0-51.0); %Monocytes 11.5 % (0.0-10.0); Hematocrit 31.5 % (42.0-52.0); Mean Platelet Volume 6.7 fL (7.4-10.4); Red Blood Cell (RBC) Count 3.23 mill/uL (4.70-6.10); White Blood Cell (WBC) Count 6.6 thou/uL (4.8-10.8)
[2017-07-05 06:19] LABS: Anion Gap 13 mmol/L (10-20); BUN (Urea Nitrogen) 11 mg/dL (8.4-25.7); Calc. Creatinine Clearance 160 mL/min (70-130); Calcium 8.5 mg/dL (7.8-10.44); Carbon Dioxide 22 mmol/L (22-29); Chloride 108 mmol/L (98-107); Estimated GFR-MDRD Greater than 90; Magnesium 2.3 mg/dL (1.6-2.6); Phosphorus 3.5 mg/dL (2.3-4.7)
[2017-07-05] MEDS ORDERED: Valsartan 80 MG TAB PO SCH (08:30)
[2017-07-05] MEDS: Gabapentin 300 MG CAP PO SCH ×3 (09:32→20:08)
[2017-07-05] MEDS: Famotidine 20 MG TAB PO SCH ×2 (09:33→20:08)
[2017-07-05] MEDS: Polyethylene Glycol 3350 17 GM Packet PO SCH (09:42)
[2017-07-05] MEDS: Senokot S 8.6-50 MG TAB PO SCH ×2 (09:42→20:08)
[2017-07-05] MEDS: traMADol HCl 50 MG TAB PO SCH ×3 (12:29→23:59)
[2017-07-05] MEDS: Tamsulosin HCl 0.4 MG CAP PO SCH (20:08)
[2017-07-05] MEDS: Valsartan 80 MG TAB PO SCH (20:08)
[2017-07-06] MEDS: Acetaminophen 500 MG TAB PO SCH ×4 (05:52→23:25)
[2017-07-06] MEDS: Ibuprofen 800 MG TAB PO SCH ×4 (05:52→23:25)
[2017-07-06] MEDS: traMADol HCl 50 MG TAB PO SCH ×4 (05:53→23:25)
[2017-07-06] MEDS: Gabapentin 300 MG CAP PO SCH ×3 (08:04→20:41)
[2017-07-06] MEDS: Famotidine 20 MG TAB PO SCH ×2 (08:04→20:43)
[2017-07-06] MEDS: Senokot S 8.6-50 MG TAB PO SCH ×2 (08:05→20:41)
[2017-07-06] MEDS: Polyethylene Glycol 3350 17 GM Packet PO SCH (08:07)
[2017-07-06] MEDS: Tamsulosin HCl 0.4 MG CAP PO SCH (20:41)
[2017-07-06] MEDS: Valsartan 80 MG TAB PO SCH (20:41)
[2017-07-07] MEDS: Ibuprofen 800 MG TAB PO SCH ×4 (05:10→23:34)
[2017-07-07] MEDS: Acetaminophen 500 MG TAB PO SCH ×4 (05:10→23:34)
[2017-07-07] MEDS: traMADol HCl 50 MG TAB PO SCH ×4 (05:11→23:34)
[2017-07-07 07:59] LABS: #Basophils 0.1 thou/uL (0.0-0.2); #Eosinphils 0.4 thou/uL (0.0-0.7); #Lymphocytes 1.7 thou/uL (1.20-3.40); #Monocytes 0.6 thou/uL (0.11-0.59); #Neutrophils 4.2 thou/uL (1.40-6.50); %Basophils 0.8 % (0.0-1.0); %Eosinophils 5.5 % (0.0-10.0); %Lymphocytes 24.1 % (21.0-51.0); %Monocytes 8.1 % (0.0-10.0); Hematocrit 32.3 % (42.0-52.0); Mean Platelet Volume 6.7 fL (7.4-10.4); Red Blood Cell (RBC) Count 3.34 mill/uL (4.70-6.10); White Blood Cell (WBC) Count 6.9 thou/uL (4.8-10.8)
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
[2017-07-07] MEDS: Famotidine 20 MG TAB PO SCH ×2 (09:20→20:40)
[2017-07-07] MEDS: Enoxaparin Sodium 40 MG/0.4 ML SYRINGE SC SCH (09:20)
[2017-07-07] MEDS: Gabapentin 300 MG CAP PO SCH ×3 (09:20→20:40)
[2017-07-07] MEDS: Senokot S 8.6-50 MG TAB PO SCH ×2 (09:20→20:40)
[2017-07-07] MEDS: Hydrochlorothiazide 25 MG TAB PO SCH (09:21)
[2017-07-07] MEDS: Valsartan 80 MG TAB PO SCH (09:21)
[2017-07-07] MEDS: Polyethylene Glycol 3350 17 GM Packet PO SCH (09:22)
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
[2017-07-07] MEDS: Tamsulosin HCl 0.4 MG CAP PO SCH (20:41)
[2017-07-08 05:18] LABS: #Basophils 0.1 thou/uL (0.0-0.2); #Eosinphils 0.3 thou/uL (0.0-0.7); #Lymphocytes 1.6 thou/uL (1.20-3.40); #Monocytes 0.6 thou/uL (0.11-0.59); #Neutrophils 3.5 thou/uL (1.40-6.50); %Eosinophils 5.6 % (0.0-10.0); %Monocytes 9.4 % (0.0-10.0); Hematocrit 33.2 % (42.0-52.0); Mean Platelet Volume 6.6 fL (7.4-10.4); Red Blood Cell (RBC) Count 3.45 mill/uL (4.70-6.10); White Blood Cell (WBC) Count 6.1 thou/uL (4.8-10.8)
[2017-07-08 05:44] LABS: Anion Gap 14 mmol/L (10-20); BUN (Urea Nitrogen) 22 mg/dL (8.4-25.7); Calc. Creatinine Clearance 113 mL/min (70-130); Carbon Dioxide 23 mmol/L (22-29); Chloride 104 mmol/L (98-107); Estimated GFR-MDRD 77; Magnesium 2.2 mg/dL (1.6-2.6); Phosphorus 4.3 mg/dL (2.3-4.7)
[2017-07-08] MEDS: traMADol HCl 50 MG TAB PO SCH ×2 (06:30→12:24)
[2017-07-08] MEDS: Acetaminophen 500 MG TAB PO SCH ×2 (06:30→12:24)
[2017-07-08] MEDS: Ibuprofen 800 MG TAB PO SCH ×2 (06:34→15:26)
[2017-07-08] MEDS: Hydrochlorothiazide 25 MG TAB PO SCH (08:38)
[2017-07-08] MEDS: Valsartan 80 MG TAB PO SCH (08:38)
[2017-07-08] MEDS: Gabapentin 300 MG CAP PO SCH ×2 (08:38→15:26)
[2017-07-08] MEDS: Senokot S 8.6-50 MG TAB PO SCH (08:39)
[2017-07-08] MEDS: Polyethylene Glycol 3350 17 GM Packet PO SCH (08:39)
[2017-07-08] MEDS: Famotidine 20 MG TAB PO SCH (08:39)
[2017-07-08] MEDS: Enoxaparin Sodium 40 MG/0.4 ML SYRINGE SC SCH (08:39)
[2017-07-08 12:42] VITALS: BP 93/55; TEMP 98.2
--- NOTE | 2017-07-08 14:04 | RAD ---
INTRAOPERATIVE FLUOROSCOPY: HISTORY: Fracture. EXPOSURE: 23 seconds with 0.382 mGy. FINDINGS: Multiple fluoroscopic images demonstrate internal fixation hardware at the distal radius and ulna. Extensive comminuted fracture of the distal radius is noted. Subcutaneous emphysema suggesting open fracture is noted. There is a single screw traversing the broken scaphoid bone. IMPRESSION: Fluoroscopy as above. POS: BUSHRA
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
[2017-07-12 13:45] LABS: Oxyhemoglobin 94.4 % (94.0-97.0); Sodium 137 mmol/L (135-148)
[2017-07-12 13:59] LABS: Mode OR ABG; Vent YES
== END 2017-07-08 16:34 | DRG 464 ==
LOC: ERS 06:00 → SJJU 07:42
PROVIDERS: ADMIT Surgery; ATTEND Surgery
PROC: 0PSHXZZ Reposition Right Radius, External Approach (ICD-10-PCS; principal; 2017-06-24)
PROC: 0QSG35Z Reposition Right Tibia with External Fixation Device, Percutaneous Approach (ICD-10-PCS; 2017-06-24)
PROC: 0JDG3ZZ Extraction of Right Lower Arm Subcutaneous Tissue and Fascia, Percutaneous Approach (ICD-10-PCS; 2017-06-26)
PROC: 0RSN0ZZ Reposition Right Wrist Joint, Open Approach (ICD-10-PCS; 2017-06-26)
PROC: 0HREX74 Replacement of Left Lower Arm Skin with Autologous Tissue Substitute, Partial Thickness, External Approach (ICD-10-PCS; 2017-07-02)
PROC: 0QSG04Z Reposition Right Tibia with Internal Fixation Device, Open Approach (ICD-10-PCS; 2017-07-02)
PROC: 0HBJXZZ Excision of Left Upper Leg Skin, External Approach (ICD-10-PCS; 2017-07-02)
PROC: 0PSH04Z Reposition Right Radius with Internal Fixation Device, Open Approach (ICD-10-PCS; 2017-07-02)
PROC: 0PSK04Z Reposition Right Ulna with Internal Fixation Device, Open Approach (ICD-10-PCS; 2017-07-02)
PROC: 0PSM04Z Reposition Right Carpal with Internal Fixation Device, Open Approach (ICD-10-PCS; 2017-07-02)
PROC: 0JBH0ZZ Excision of Left Lower Arm Subcutaneous Tissue and Fascia, Open Approach (ICD-10-PCS; 2017-07-02)
PROC: 0MQ Bursae and Ligaments, Repair (ICD-10-PCS; 2017-07-02)
PROC: 0PSH04Z Reposition Right Radius with Internal Fixation Device, Open Approach (ICD-10-PCS; 2017-07-02)
PROC: 0QPGX5Z Removal of External Fixation Device from Right Tibia, External Approach (ICD-10-PCS; 2017-07-02)
DX: S52.571B Other intraarticular fracture of lower end of right radius, initial encounter for open fracture type I or II (principal); S22.31XA Fracture of one rib, right side, initial encounter for closed fracture; S32.019A Unspecified fracture of first lumbar vertebra, initial encounter for closed fracture; S32.029A Unspecified fracture of second lumbar vertebra, initial encounter for closed fracture; S52.611A Displaced fracture of right ulna styloid process, initial encounter for closed fracture; S02.40CA Maxillary fracture, right side, initial encounter for closed fracture; S32.039A Unspecified fracture of third lumbar vertebra, initial encounter for closed fracture; S32.049A Unspecified fracture of fourth lumbar vertebra, initial encounter for closed fracture; S82.871B Displaced pilon fracture of right tibia, initial encounter for open fracture type I or II; S52.351B Displaced comminuted fracture of shaft of radius, right arm, initial encounter for open fracture type I or II; S06.0X0A Concussion without loss of consciousness, initial encounter; I10 Essential (primary) hypertension; S62.001A Unspecified fracture of navicular [scaphoid] bone of right wrist, initial encounter for closed fracture; S53.21XA Traumatic rupture of right radial collateral ligament, initial encounter; S53.31XA Traumatic rupture of right ulnar collateral ligament, initial encounter; V28.0XXA Motorcycle driver injured in noncollision transport accident in nontraffic accident, initial encounter; Y92.410 Unspecified street and highway as the place of occurrence of the external cause; S63.591A Other specified sprain of right wrist, initial encounter
CPT/HCPCS: 29105; 29505; 36415; 51702; 70450; 70486; 71010; 71260; 72125; 74177; 76001; 80048; 80053; 82805; 83605; 83690; 83735; 83880; 84100; 85025; 85610; 85730; 86850; 86900; 86901; 87070; 87205; 93005; 94640; 96361; 96365; 96375; C1713; G0390; G8978-GP-CK; G8978-GP-CL; G8979-GP-CJ; G8987-GO-CK; G8988-GO-CJ; J0360; J0670; J0690; J0696; J1100; J1170; J1650; J1885; J2001; J2175; J2250; J2270; J2405; J2704; J2795; J3010; J3490; J7050; J7620; S0028

== ENCOUNTER 2017-07-20 08:16 | Inpatient (IN) | payer OTHER ==
[2017-07-19 17:40] VITALS: BMI 32.5
[2017-07-20 11:44] LABS: #Eosinphils 0.1 thou/uL (0.0-0.7); #Lymphocytes 1.4 thou/uL (1.20-3.40); #Monocytes 0.9 thou/uL (0.11-0.59); #Neutrophils 5.2 thou/uL (1.40-6.50); %Basophils 0.1 % (0.0-1.0); %Eosinophils 1.8 % (0.0-10.0); %Monocytes 12.3 % (0.0-10.0); Hematocrit 35.2 % (42.0-52.0); Mean Platelet Volume 6.9 fL (7.4-10.4); Red Blood Cell (RBC) Count 3.71 mill/uL (4.70-6.10); White Blood Cell (WBC) Count 7.6 thou/uL (4.8-10.8)
[2017-07-20 12:09] LABS: Anion Gap 16 mmol/L (10-20); BUN (Urea Nitrogen) 14 mg/dL (8.4-25.7); Calc. Creatinine Clearance 132 mL/min (70-130); Calcium 9.5 mg/dL (7.8-10.44); Carbon Dioxide 23 mmol/L (22-29); Chloride 101 mmol/L (98-107); Estimated GFR-MDRD Greater than 90
[2017-07-20] MEDS ORDERED: Lidocaine 1% (PF) 30 ML VIAL ONE (12:11)
[2017-07-20] MEDS ORDERED: Sodium Chloride 0.9% 20 ML ONE ×2 (12:11→13:24)
[2017-07-20] MEDS ORDERED: Thrombin 5000 UNITS/5 ML VIAL ONE (12:11)
[2017-07-20] MEDS ORDERED: Bupivacaine PF 0.5% 30 ML VIAL ONE (12:11)
[2017-07-20] MEDS ORDERED: Bacitracin Zinc Ointment 30 gm TUBE ONE (12:11)
[2017-07-20] MEDS ORDERED: Fentanyl 100 MCG/2 ML VIAL ONE ×3 (12:16→15:06)
[2017-07-20] MEDS ORDERED: Lidocaine 2% PF 10 ML AMP (For Epidural Use) ONE (12:59)
[2017-07-20] MEDS ORDERED: Ondansetron HCl/PF 4 MG/2 ML Vial ONE (12:59)
[2017-07-20] MEDS ORDERED: Dexamethasone 20 MG/5 ML VIAL ONE (12:59)
[2017-07-20] MEDS ORDERED: Propofol 200 MG/20 ML VIAL ONE (12:59)
[2017-07-20] MEDS ORDERED: Tobramycin Sulfate 1.2 GM VIAL ONE (13:24)
[2017-07-20] MEDS ORDERED: Ketorolac Tromethamine 30 MG/ML VIAL ONE (15:06)
[2017-07-20] MEDS ORDERED: Morphine Sulfate 2 MG/ML SYRINGE SLOW IVP PRN (17:59)
[2017-07-20] MEDS ORDERED: HYDROcodone/Acetaminophen 7.5/325 mg Tablet PO PRN ×2 (17:59)
[2017-07-20] MEDS ORDERED: Bisacodyl 5 MG TAB PO PRN (18:03)
--- NOTE | 2017-07-20 18:11 | PDOC.PN ---
- Subjective Encounter Start Date: 07/20/17 Encounter Start Time: 18:09 Pt seen for management of medical comorbidities, including constipation. Reports constipation. Denies chest pain, nausea or vomiting. No fevers or chills. - Objective MAR Reviewed: Yes Vital Signs & Weight: Weight Weight 220 lb Result Diagrams: 07/20/17 11:28 07/20/17 11:28 Phys Exam - Physical Examination Constitutional: NAD HEENT: moist MMs Neck: supple Respiratory: clear to auscultation bilateral Cardiovascular: RRR Gastrointestinal: soft, non-tender Musculoskeletal: pulses present s/p RUE surgery Neurological: moves all 4 limbs Psychiatric: normal affect Skin: no rash Dx/Plan (1) Constipation Code(s): K59.00 - CONSTIPATION, UNSPECIFIED Status: Acute (2) H/O hand surgery Code(s): Z98.890 - OTHER SPECIFIED POSTPROCEDURAL STATES Status: Acute (3) Hypertension Code(s): I10 - ESSENTIAL (PRIMARY) HYPERTENSION Status: Chronic - Plan DVT proph w/SCDs * .Start Dulcolax now and PRN. Resume home anti-hypertensives, monitor vital signs and titrate as needed. s/p hand surgery. DVT prophylaxis with SCDs. Review of Systems - Review of Systems Constitutional: negative: Fever, Chills, Sweats Respiratory: negative: Cough, Shortness of Breath Cardiovascular: negative: Chest Pain, Palpitations Gastrointestinal: Constipation. negative: Nausea, Vomiting - Medications/Allergies Allergies/Adverse Reactions: Allergies Allergy/AdvReac Type Severity Reaction Status Date / Time No Known Drug Allergies Allergy Verified 07/19/17 17:40 Medications: Current Medications Hydrocodone Bitart/Acetaminophen ([place] 7.5/325) 1 tab PO Q4H PRN PRN Reason: PAIN SCALE 1-5 Hydrocodone Bitart/Acetaminophen ([place] 7.5/325) 2 tab PO Q4H PRN PRN Reason: PAIN SCALE 6-10 Amlodipine Besylate (Norvasc) 10 mg PO DAILY [facility]AD Bisacodyl (Dulcolax) 10 mg PO DAILYPRN PRN PRN Reason: Constipation Bisacodyl (Dulcolax) 5 mg PO NOW SUAD Stop: 07/20/17 20:15 Hydrochlorothiazide (Hydrochlorothiazide) 12.5 mg PO DAILY SUAD Vancomycin HCl 1 gm/ Device 200 mls @ 200 mls/hr IVPB 0100,1300 [facility] Morphine Sulfate (Morphine Sulfate) 2 mg SLOW IVP Q4H PRN PRN Reason: Pain Valsartan (Diovan) 160 mg PO DAILY SUAD
[2017-07-20] MEDS ORDERED: Bisacodyl 5 MG TAB PO SCH (18:15)
[2017-07-20] MEDS ORDERED: Zolpidem Tartrate 5 MG TAB PO PRN (19:39)
[2017-07-20] MEDS: Gabapentin 300 MG CAP PO SCH (20:50)
[2017-07-20] MEDS: Tamsulosin HCl 0.4 MG CAP PO SCH (20:50)
[2017-07-20] MEDS: Ibuprofen 800 MG TAB PO SCH (20:51)
[2017-07-21] MEDS: traMADol HCl 50 MG TAB PO SCH ×4 (00:37→17:36)
[2017-07-21] MEDS: Vancomycin HCl 1 GM in Premix Bag 1 BAG IVPB SCH ×2 (00:41→13:52)
--- NOTE | 2017-07-21 01:08 | OP ---
DATE OF PROCEDURE: 07/20/2017 PREOPERATIVE DIAGNOSIS: Wound necrosis ulnar after previous complex distal radius and ulnar fractur es with ulnar distal radius interosseous membrane injury, and multiple debridements prior at this ti ak (3). POSTOPERATIVE DIAGNOSES AND FINDINGS: Wound edge necrosis at the distal end of the ulnar wound, dis cher 1.5 cm without gross purulence. Hematoma deep found in the interosseous membrane without gross infection, but with serosanguineous drainage around small amount of clotted blood. PROCEDURES PERFORMED: 1. Debridement of ulnar wound. 2. Application of antibiotic beads, ulnar wound. 3. Debridement of radius wound and fracture site, with application of antibiotic beads in the regio n where there was a serosanguineous drainage and hematoma along with closure over drain. 4. The tract between the interosseous membrane, radius and ulna coming out of the ulnar wound where it had previously been opened in the area of wound edge necrosis, not the skin graft which appeared to be nearly 100% take. No gross ulnar involvement. 5. Debridement of bone, ulna. 6. Debridement of wound, ulna. 7. Debridement of bone, radius. 8. Debridement of wound, radius. 9. These are two separate wounds. 10. Application of antibiotic beads. 11. Application of a Hemovac drain. 12. Application of a long arm splint. SURGEON: Dr. Juni Wood. ANESTHESIA: Nigerian Anesthesia. DESCRIPTION OF PROCEDURE: After successful general LMA technique, the limb was prepped and draped. The patient had the wound evaluated and underwent initial inspection, we released all sutures on th e radius and ulnar wound, lifted up the shell around the ulnar wound and found that there was a mild amount of mucopurulent underneath the skin for 1-2 mm, so the entire 1-2 mm of skin edge was excise d. It was here you could note that the part of the previous repair that failed was the actual closu re while the actual graft site showed over 90% intact. We then irrigated the debrided wound edge and extensor carpi ulnaris area with normal saline and Pul savac pressure with antibiotics inside, 50,000 units of bacitracin per liter. Then, once this was d one, we began blunt dissection and we prepared to make the antibiotic beads which we did. Blunt dis section revealed however an area of reddish yellow exudate, which appeared to be the cause of blood breakdown, emanated from the least deep interosseous membrane, if not the radius itself. For this r elvira, we applied a sterile tourniquet, exsanguinated the limb and inflated the tourniquet to 250 mm Hg pressure, opened the previous wound via blunt dissection, dissected down to an area where it was more tello, green, and red breakdown and slime layer formed what appeared to be hematoma. We evacuat ed this completely by removing it using a combination of tenotomy scissors, curette, Adson pickups, Trin[place] pickups, and heavy hemostat. Once this was done, we inspected the bone graft following mini mal changes to see no gross purulence around it, but we took a sample of the bone graft and sample o f the soft tissue wound to send for cultures to include specimen and evaluation of the bone. The patient had this wound irrigated with 3 liters of normal saline and Pulsavac pressure with 50,00 0 units of antibiotics inside. It was then, that they were able to elevate the wound, elevate the b one edges, we took a sample, released the tourniquet to prepare for closure. We want to obtain hemo stasis in both sides of the wound, placed a medium Hemovac drain in the center of the wound and brou ght out palmarly and distally. Then we closed the open wound in 2 layers approximating the epidermi s loosely and the drain that was activated. We then placed the antibiotic beads, which was Nebcin p owder to be mixed into all aspects of the wound to track the ulnar exit and the subcutaneous area of the wound edge necrosis of the ulnar wound itself. This was effective and the patient left the ope rating room without evidence of anesthetic or operative complication.
[2017-07-21] MEDS: Ibuprofen 800 MG TAB PO SCH ×3 (06:07→21:03)
[2017-07-21] MEDS: Gabapentin 300 MG CAP PO SCH ×3 (09:20→21:04)
[2017-07-21] MEDS: Hydrochlorothiazide 25 MG TAB PO SCH (09:21)
[2017-07-21] MEDS: Valsartan 80 MG TAB PO SCH (09:21)
--- NOTE | 2017-07-21 10:27 | PDOC.PN ---
- Subjective Encounter Start Date: 07/21/17 Encounter Start Time: 08:00 Pt seen for followup re: hypertension. Had a small bowel movement. No chest pain, shortness of breath, fevers or chills. - Objective MAR Reviewed: Yes Vital Signs & Weight: Vital Signs (12 hours) Temp Pulse Resp BP Pulse Ox 07/21/17 09:20 58 L 07/21/17 07:05 98.0 F 58 L 12 124/81 99 07/21/17 03:46 97.9 F 70 19 130/77 99 07/21/17 00:00 98.0 F 65 18 112/62 96 Weight Weight 220 lb I&O: 07/20/17 07/21/17 07/22/17 06:59 06:59 06:59 Intake Total 200 Output Total 0 Balance 0 200 Result Diagrams: 07/20/17 11:28 07/20/17 11:28 Additional Labs: Accuchecks 07/20/17 19:35 POC Glucose 200 H Phys Exam - Physical Examination Constitutional: NAD HEENT: moist MMs, oral pharynx no lesions Neck: supple Respiratory: clear to auscultation bilateral Cardiovascular: RRR Neurological: moves all 4 limbs Psychiatric: normal affect Dx/Plan (1) Hypertension Code(s): I10 - ESSENTIAL (PRIMARY) HYPERTENSION Status: Chronic (2) Constipation Code(s): K59.00 - CONSTIPATION, UNSPECIFIED Status: Resolved - Plan DVT proph w/SCDs * . Monitor vital signs and titrate antihypertensives as needed. Constipation resolved. Awaiting repeat hand surgery tomorrow. Review of Systems - Review of Systems Constitutional: negative: Fever, Chills, Sweats, Weakness, Malaise Respiratory: negative: Cough, Dry, Shortness of Breath, Hemoptysis, SOB with Excertion, Pleuritic Pain, Sputum, Wheezing Cardiovascular: negative: Chest Pain, Palpitations, Orthopnea, Paroxysmal Noc. Dyspnea, Edema, Light Headedness - Medications/Allergies Allergies/Adverse Reactions: Allergies Allergy/AdvReac Type Severity Reaction Status Date / Time No Known Drug Allergies Allergy Verified 07/19/17 17:40 Medications: Current Medications Hydrocodone Bitart/Acetaminophen ([place] 7.5/325) 1 tab PO Q4H PRN PRN Reason: PAIN SCALE 1-5 Hydrocodone Bitart/Acetaminophen ([place] 7.5/325) 2 tab PO Q4H PRN PRN Reason: PAIN SCALE 6-10 Amlodipine Besylate (Norvasc) 10 mg PO DAILY [facility] Last Admin: 07/21/17 09:20 Dose: 10 mg Bisacodyl (Dulcolax) 10 mg PO DAILYPRN PRN PRN Reason: Constipation Gabapentin (Neurontin) 300 mg PO TID [facility] Last Admin: 07/21/17 09:20 Dose: 300 mg Hydrochlorothiazide (Hydrochlorothiazide) 12.5 mg PO DAILY [facility] Last Admin: 07/21/17 09:21 Dose: 12.5 mg Vancomycin HCl 1 gm/ Device 200 mls @ 200 mls/hr IVPB 0100,1300 [facility] Last Admin: 07/21/17 00:41 Dose: 200 mls Ibuprofen (Motrin) 800 mg PO Q8HR [facility] Last Admin: 07/21/17 06:07 Dose: 800 mg Morphine Sulfate (Morphine Sulfate) 2 mg SLOW IVP Q4H PRN PRN Reason: Pain Tamsulosin HCl (Flomax) 0.4 mg PO HS [facility] Last Admin: 07/20/17 20:50 Dose: 0.4 mg Tramadol HCl (Ultram) 100 mg PO Q6HR [facility] Last Admin: 07/21/17 06:07 Dose: 100 mg Valsartan (Diovan) 160 mg PO DAILY [facility] Last Admin: 07/21/17 09:21 Dose: 160 mg Zolpidem Tartrate (Ambien) 5 mg PO HS PRN PRN Reason: Insomnia
[2017-07-21] MEDS: Tamsulosin HCl 0.4 MG CAP PO SCH (21:04)
[2017-07-22] MEDS: traMADol HCl 50 MG TAB PO SCH ×2 (00:05→06:32)
[2017-07-22] MEDS: Vancomycin HCl 1 GM in Premix Bag 1 BAG IVPB SCH (00:06)
[2017-07-22 05:53] LABS: Prothrombin Time 13.6 SEC (12.0-14.7)
[2017-07-22 06:06] LABS: Calc. Creatinine Clearance 146 mL/min (70-130); Estimated GFR-MDRD Greater than 90
[2017-07-22] MEDS: Ibuprofen 800 MG TAB PO SCH (06:33)
[2017-07-22] MEDS: Gabapentin 300 MG CAP PO SCH (07:52)
[2017-07-22] MEDS: Hydrochlorothiazide 25 MG TAB PO SCH (07:53)
[2017-07-22] MEDS: Valsartan 80 MG TAB PO SCH (07:53)
--- NOTE | 2017-07-22 09:58 | SPC ---
ULTRASOUND GUIDED LEFT UPPER EXTREMITY PICC PLACEMENT: DATE: 07/22/17. History A 57-year-old male with right wrist infection in need of IV antibiotics. FINDINGS: Informed consent was obtained prior to the procedure. Left antecubital fossa is prepped and draped in normal sterile fashion. With direct sonographic guidance, vascular access is obtained via the le ft basilic vein. An [id number] wire was advanced to the IVC, subsequently retracted to the cavoatrial ju nction. Intravascular length is calculated at 43 cm and the PICC is cut accordingly. The needle is removed and replaced with a peelaway sheath. The PICC is advanced over the wire. The wire and pee laway sheath were removed. The tip of the catheter overlies the cavoatrial junction. The catheter flushes well and is ready for use. EXPOSURE DATA: 0.3 minutes of fluoroscopic time, 2107 mGy*\S\cm2. IMPRESSION: Successful placement of left upper extremity PICC with fluoroscopic and sonographic guidance. POS: BUSHRA
--- NOTE | 2017-07-22 10:51 | PDOC.PN ---
- Subjective Encounter Start Date: 07/22/17 Encounter Start Time: 09:00 Pt seen for followup re: hypertension. Denies chest pain, shortness of breath, fevers, chills. Had another BM. - Objective Vital Signs & Weight: Vital Signs (12 hours) Temp Pulse Resp BP Pulse Ox 07/22/17 07:52 79 07/22/17 04:00 98.9 F 79 18 124/78 97 07/22/17 00:00 97.6 F 58 L 18 117/75 97 Weight Weight 220 lb I&O: 07/21/17 07/22/17 07/23/17 06:59 06:59 06:59 Intake Total 1980 Output Total 0 702 Balance 0 1278 Result Diagrams: 07/20/17 11:28 07/22/17 04:14 Phys Exam - Physical Examination Constitutional: NAD HEENT: moist MMs Respiratory: clear to auscultation bilateral Cardiovascular: RRR Neurological: moves all 4 limbs Psychiatric: normal affect Dx/Plan (1) Hypertension Code(s): I10 - ESSENTIAL (PRIMARY) HYPERTENSION Status: Chronic (2) Constipation Code(s): K59.00 - CONSTIPATION, UNSPECIFIED Status: Resolved - Plan DVT proph w/SCDs * . Pt currently NPO for surgery today. Vancomycin has fallen off of medication orders, discussed with pharmacist, renewed, requested pharmacy to dose vancomycin (for MRSA in cultures). Review of Systems - Review of Systems Constitutional: negative: Fever, Chills, Sweats, Weakness, Malaise Cardiovascular: negative: Chest Pain, Palpitations, Orthopnea, Paroxysmal Noc. Dyspnea, Edema, Light Headedness Gastrointestinal: negative: Nausea, Vomiting, Abdominal Pain, Diarrhea, Constipation, Melena, Hematochezia - Medications/Allergies Allergies/Adverse Reactions: Allergies Allergy/AdvReac Type Severity Reaction Status Date / Time No Known Drug Allergies Allergy Verified 07/19/17 17:40
[2017-07-22] MEDS ORDERED: HYDROcodone/Acetaminophen 7.5/325 mg Tablet PO PRN ×2 (12:04)
[2017-07-22] MEDS ORDERED: Morphine Sulfate 2 MG/ML SYRINGE SLOW IVP PRN (12:04)
[2017-07-22] MEDS ORDERED: Bisacodyl 5 MG TAB PO PRN (12:05)
[2017-07-22] MEDS ORDERED: Zolpidem Tartrate 5 MG TAB PO PRN (12:05)
[2017-07-22 12:20] VITALS: BP 127/85; TEMP 98.2
[2017-07-22 12:38] LABS: Vancomycin, Trough 9.6 ug/mL
[2017-07-22] MEDS ORDERED: Vancomycin HCl 1 GM in Premix Bag 1 BAG IVPB SCH (13:00)
[2017-07-22] MEDS ORDERED: Ibuprofen 800 MG TAB PO SCH (14:00)
[2017-07-22] MEDS ORDERED: Gabapentin 300 MG CAP PO SCH (15:00)
[2017-07-22] MEDS ORDERED: Heparin 1,000 UNITS/ML VIAL ONE (15:17)
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
[2017-07-22] MEDS ORDERED: traMADol HCl 50 MG TAB PO SCH (18:00)
[2017-07-22] MEDS ORDERED: Tamsulosin HCl 0.4 MG CAP PO SCH (21:00)
[2017-07-23] MEDS ORDERED: Vancomycin HCl 1.25 GM in Sodium Chloride 0.9% 250 ML 250 ML IVPB SCH (01:00)
[2017-07-23] MEDS ORDERED: Hydrochlorothiazide 25 MG TAB PO SCH (09:00)
[2017-07-23] MEDS ORDERED: Valsartan 80 MG TAB PO SCH (09:00)
--- NOTE | 2017-07-23 09:28 | PQF ---
SUGEY CARMICHAEL DARRYL [id number] SURG A- [id number] CLINICAL DOCUMENTATION CLARIFICATION FORM: POST DISCHARGE PLEASE FAX RESPONSE BACK TO [phone] Addendum to original discharge summary date: ____ Late entry note date: __ DATE: 07/23/17 ATTN: Juni Wood MD The following CLINICAL INDICATORS - SIGNS / SYMPTOMS are present in the medical record: OP Report 07/20/17 Procedures Performed: 5. Debridement of bone, ulna 6. Debridement of wound, ulna 7. Debridement of bone, radius 8. Debridement of wound, radius RISKS: Complications after fracture surgery TREATMENTS: Debridement Please provide a response below if a more specific term indicating a diagnosis and/or acuity level for this condition can be identified. Please exercise your independent, professional judgment in responding to the clarification form. Clinical indicators are provided at the top of this form for your review. . For continuity of documentation, please document condition throughout progress notes and discharge summary. Thank you. [ ] Present on Admission (POA): [ ] Yes [ ] No [ ] Unable to determine [ ] Excisional Debridement: (Definition) Excisional debridement is the surgical removal or cutting away of devitalized tissue, necrosis, or slough. Excisional debridement can be performed in the operating room, emergency room, or at the patient's bedside. ([facility], Fourth 1987) [ ] Excised [ ] Removed [ ] Cut away [ ] Other: Depth / layer: (deepest layer of debridement): [ ] Skin/SubQ[ ] Fascia [ ] Muscle [ ] Bone Margins: (please specify): / x x Instruments used: [ ] Scissors [ ] Scalpel[ ] Curette[ ] Tweezers/ forceps [ ] Soft tissue clipper[ ] Other: [ ] Non-excisional Debridement: (Removal by flushing, brushing, or washing) ( Definition) Nonexcisional debridement is the non-operative brushing, irrigating , scrubbing, or washing of devitalized tissue, necrosis, or slough. Nonexcisional debridement includes snipping of tissue followed by Aleman tank therapy. Nonexcisional debridement may be performed by a nurse, therapist, or physician. ([facility], 1987) [ ] Incision and Drainage only (No Debridement): Depth:[ ] Skin & Sub Q only[ ] Into soft tissue [ ] Escharectomy [ ] Does not apply to this patient [ ] Unable to determine [ ] Other diagnosis: _ Physician/Provider Signature Date Time (This form is maintained as a part of the permanent medical record) 2014 [employer]. All Rights Reserved [email or web address]
== END 2017-07-22 16:10 | disposition short-term general hospital (02) | DRG 857 ==
LOC: SDC 08:16 → SURG A 15:59 → SDC 16:00 → SURG A 16:00 → UNDOADMIN 07-22 10:04 → SURG A 07-22 10:04
PROVIDERS: ADMIT Orthopaedic Surgery Hand Surgery; ATTEND Orthopaedic Surgery Hand Surgery
PROC: 0PDJ0ZZ Extraction of Left Radius, Open Approach (ICD-10-PCS; principal; 2017-07-20)
PROC: 0PDL0ZZ Extraction of Left Ulna, Open Approach (ICD-10-PCS; 2017-07-20)
PROC: 3E0V329 Introduction of Other Anti-infective into Bones, Percutaneous Approach (ICD-10-PCS; 2017-07-20)
PROC: 2W3DX1Z Immobilization of Left Lower Arm using Splint (ICD-10-PCS; 2017-07-20)
DX: T81.4XXA Infection following a procedure, initial encounter (principal); M96.840 Postprocedural hematoma of a musculoskeletal structure following a musculoskeletal system procedure; M86.8X3 Other osteomyelitis, forearm; I10 Essential (primary) hypertension; K59.00 Constipation, unspecified; B95.62 Methicillin resistant Staphylococcus aureus infection as the cause of diseases classified elsewhere; Y83.8 Other surgical procedures as the cause of abnormal reaction of the patient, or of later complication, without mention of misadventure at the time of the procedure; Y92.234 Operating room of hospital as the place of occurrence of the external cause
CPT/HCPCS: 36415; 36416; 36569; 80048; 80202; 82565; 85025; 85610; 85652; 86850; 86900; 86901; 87070; 87077; 87186; 87205; 88307; 88311; 96374; A4216; C1713; C1751; J1100; J1644; J1885; J2001; J2405; J2704; J3010; J3260; J3370; J3490; S0020